=== PATIENT | male | born 1990 | race Caucasian/White ===

== ENCOUNTER 2023-04-11 08:23 | Emergency (ER) | payer OTHER, SELFPAY ==
[2023-04-11 08:40] VITALS: BP 130/66; PULSE 80; RESP 16; TEMP 36.7; O2SAT 99
[2023-04-11 08:43] VITALS: BP 130/66; PULSE 80; RESP 16; TEMP 36.7; O2SAT 99
--- NOTE | 2023-04-11 08:46 | ED.GENADULT ---
HPI - General Adult General Chief complaint: Skin/Abscess/Foreign Body Stated complaint: allergic reaction Time Seen by Provider: 04/11/23 08:46 Source: patient Mode of arrival: ambulatory Limitations: no limitations History of Present Illness HPI narrative: 33 y/o male presented for c/o rash all over body for 2 days. Rash spares face and feet. Denies itching, pain or drainage. Denies lip, tongue, or throat swelling, shortness of breath or wheezing. Denies changes to soap, detergent, lotion, or any other exposures. However he works in the laundry at a hotel and is unsure of other possible exposures. He also rides his bike and has been outside often. No one else in the house or any contacts with similar symptoms. Related Data Home Medications Medication Instructions Recorded Confirmed Immunoglobulin IV MONTHLY 04/11/23 Allergies Allergy/AdvReac Type Severity Reaction Status Date / Time No Known Allergies Allergy Verified 04/11/23 08:41 Review of Systems Review of Systems: CONSTITUTIONAL: Denies body aches, fever, chills, or sweats. EYES: Denies visual changes, redness, or discharge. ENT: Denies rhinorrhea, congestion CARDIOVASCULAR: Denies chest pain, palpitations, or edema. RESPIRATORY: Denies cough or dyspnea. GASTROINTESTINAL: Denies abdominal pain, nausea, vomiting, or diarrhea. SKIN: per HPI MUSCULOSKELETAL: Denies back pain, joint pain, or myalgia. NEUROLOGIC: Denies headache, numbness, tingling, or weakness. [facility] Past Medical History Medical History (Updated 04/11/23 @ 09:04 by Linn Hitchcock APRN) Immune deficiency disorder Social History Social History (Updated 04/11/23 @ 09:05 by Linn Hitchcock APRN) Smoking status: Current every day smoker Comments At time of signature, I have reviewed and agree with nursing past medical, surgical, social and family history unless otherwise noted. Please see nursing chart for further information. There is no relevant family history pertinent to the presenting complaint Exam Narrative: GENERAL: Well-appearing HEAD: Normocephalic, atraumatic. EYES: conjunctivae clear, and EOMI. ENT: Mucous membranes moist. Oropharynx without edema, erythema or lesions. NECK: Supple. No lymphadenopathy CHEST: Clear to auscultation. HEART: Regular rate and rhythm. SKIN: Warm, dry. Diffuse erythematous papular rash noted primarily over arms and legs, scattered over torso, sparing the face and neck. No oozing, purulence, fluctuance or induration NEURO: Alert and oriented x3. Course Course Emergency Course: Patient is aware of diagnosis, understands and agrees to treatment plan. Anticipatory guidance given. Patient agrees to follow-up as directed and is aware of reasons to seek care at the emergency department. Portions of this record may have been created with voice recognition software Level of Care: Express Care Visit Vital Signs Vital signs: Vital Signs Temperature 98.1 F 04/11/23 08:40 Pulse Rate 80 04/11/23 08:40 Respiratory Rate 16 04/11/23 08:40 Blood Pressure 130/66 04/11/23 08:40 Pulse Oximetry 99 04/11/23 08:40 Temperature 98.1 F 04/11/23 08:43 Pulse Rate 80 04/11/23 08:43 Respiratory Rate 16 04/11/23 08:43 Blood Pressure 130/66 04/11/23 08:43 Pulse Oximetry 99 04/11/23 08:43 Reviewed Medical Decision Making MDM Narrative Medical decision making narrative: Discussed physical exam findings c/w heat rash vs contact dermatitis. Will send steroid to cover for allergic reaction. Advised supportive measures and signs/symptoms to go to the ER. Pt is appropriate for outpt treatment and f/u. Differential Diagnosis Differential Diagnosis: Viral exanthema, contact dermatitis, allergic dermatitis, eczema, urticaria, insect bites, impetigo, tinea, heat rash Vital Signs Vital Signs: Vital Signs Temperature 98.1 F 04/11/23 08:40 Pulse Rate 80 04/11/23 08:40 Respiratory Rate 16 0
== END 2023-04-11 09:06 | disposition home or self-care (01) ==
PROVIDERS: Emergency Provider Nurse Practitioner Family; PCP Internal Medicine
DX: L30.9 Dermatitis, unspecified (principal); F17.200 Nicotine dependence, unspecified, uncomplicated; D84.9 Immunodeficiency, unspecified
CPT/HCPCS: 99203; G0463